=== PATIENT | female | born 1955 | race Caucasian/White ===

== ENCOUNTER 2018-12-30 07:27 | Day surgery (SDC) | payer OTHER ==
[~2018-12-30] VITALS: Ht 159 cm; Wt 79.2 kg
[~2018-12-30 07:27] MED LIST: AMOX1XR PO; CEPH500 PO; CLIN300 PO; CLON.1 PO; CLON.2 PO; CLON.5; CLON.5 PO; CLON1 PO; CLOT1TC TOP; CONEST.3; CONEST.625; CYCL10 PO; DICMIS50EC; DIPATR PO; FAMO40 PO; GABA300 PO; GABA400 PO; HYDACE5 PO; HYDACE5325; HYDGUAL120 PO; HYDHCL25 PO; HYDPAM25; HYDPAM50 PO; LORA2 PO; MEDICAL MARIJUANA; METH10; METH10 PO; METH40 PO; METH5 PO; METHADONE HCL PO; MOBIC; MULVITMIND PO; Mobic15 MG PO; OMEP20ER PO; OMEPRAZOLE MAGN20 MG PO; OXYACE5T PO; OXYACE7.5T PO; OXYC10TA19 PO; OXYC30 PO; Omega 3 1,0001 EACH PO; PARO25; PROACE100 PO; PROC5 PO; PROM25 PO; Percocet 5-3251 EACH PO; Prilosec Otc20 MG; Prilosec Otc20 MG PO; Pyridium200 MG PO; RANI150 PO; RXOXYACE PO; RXPROACE PO; SULTRIDS PO; VARE1 PO; VICODEN
--- NOTE | 2018-12-30 09:36 | NUR ---
Ambulatory in Day Surgery History, Chart, Medications and Allergies reviewed before start of procedure.Patient confirms NPO status and agrees with scheduled surgery. Lungs clear T/O to Auscultation. Patient States Post-Procedure ride home has been arranged.
--- NOTE | 2018-12-30 09:52 | NUR ---
12/30/18 [id number] Merle Paredes PATIENT DETERMINED TO BE ASA APPROPRIATE FOR PROPOFOL SEDATION PRIOR TO START OF PROCEDURE BY DR. CAMARGO. 3-LEAD EKG REVIEWED WITH PHYSICIAN PRIOR TO START OF PROCEDURE. PATIENT CONFIRMS NPO STATUS AND AGREES WITH SCHEDULED PROCEDURE. History, Chart, Medications and Allergies reviewed before start of procedure. MONITOR INTACT WITH CONTINUOUS PULSE OXIMETRY AND INTERMITTENT BP. O2 VIA N/C INTACT THROUGHOUT SEDATION/PROCEDURE AND POM MASK AT 10 L. Bite Block Placed AFTER HURRICAINE SPRAY TO OROPHARYX, IMMEDIATELY PRESEDATION.
--- NOTE | 2018-12-30 10:26 | NUR ---
Patient up to Ambulate independently. Gait steady. Discharge instructions reviewed with patient. Patient verbalizes understanding. Copy given to patient to take home. Patient States Post-Procedure ride home has been arranged with brother or friend. Discharged via wheelchair to private car for ride home.
== END 2018-12-30 10:28 | disposition home or self-care (01) ==
LOC: ORSCMMR 07:27 → ORD 09:30 → ORSCMMR 09:30
PROVIDERS: Internal Medicine Gastroenterology
PROC: 0DB68ZX Excision of Stomach, Via Natural or Artificial Opening Endoscopic, Diagnostic (ICD-10-PCS; principal; 2018-12-30 09:30)
DX: R10.13 Epigastric pain (principal); B19.20 Unspecified viral hepatitis C without hepatic coma; F17.210 Nicotine dependence, cigarettes, uncomplicated; Z79.899 Other long term (current) drug therapy
CPT/HCPCS: 88305; 88342; J2704; J7120

== ENCOUNTER 2019-03-21 16:55 | Emergency (ER) | payer OTHER ==
[~2019-03-21] VITALS: Ht 157.5 cm; Wt 77.1 kg
[2019-03-21 17:52] LABS: Alanine Aminotransfer (ALT/SGP 30 U/L (12-78); Albumin, Blood 3.6 g/dL (3.4-5.0); Alk Phos 100 U/L (50-136); Anion Gap 5 mmol/L (6-16); Aspartate Aminotrans (AST/SGOT 23 U/L (12-37); Bilirubin, Total 0.3 mg/dL (0.1-1.0); Blood Urea Nitrogen 16 mg/dL (8-24); Bun/Creatinine Ratio 28.1 (12.0-20.0); CO2, Blood 29 mmol/L (21-32); Calcium, Blood 8.8 mg/dL (8.5-10.1); Chloride, Blood 106 mmol/L (98-108); Creatinine, Blood 0.57 mg/dL (0.40-1.00); Globulin, Blood 3.7 g/dL (2.2-4.0); Glomerular Filtration Rate >60 (60-); Glucose, Blood 86 mg/dL (70-99); Potassium, Blood 4.2 mmol/L (3.5-5.5); Sodium, Blood 140 mmol/L (136-145); Total Protein, Blood 7.3 g/dL (6.4-8.2); Troponin I <0.015 ng/mL (0.000-0.040)
[2019-03-21 17:58] LABS: BASOPHILS ABSOLUTE AUTO 0.01 K/mm3 (0.00-0.23); BASOPHILS PERCENT AUTO 0 % (0-2); EOSINOPHILS ABSOLUTE AUTO 0.14 K/mm3 (0.00-0.68); EOSINOPHILS PERCENT AUTO 2 % (0-6); Hematocrit 37.6 % (33.0-51.0); Hemoglobin 11.9 g/dL (11.5-16.0); IMMATURE GRAN ABSOLUTE AUTO 0.01 K/mm3 (0.00-0.10); IMMATURE GRAN PERCENT AUTO 0 % (0-1); LYMPHOCYTES ABSOLUTE AUTO 1.18 K/mm3 (0.84-5.20); LYMPHOCYTES PERCENT AUTO 19 % (21-46); MONOCYTES ABSOLUTE AUTO 0.76 K/mm3 (0.16-1.47); MONOCYTES PERCENT AUTO 13 % (4-13); Mean Corpuscular HGB 29.2 pg (26.0-34.0); Mean Corpuscular HGB Conc 31.6 g/dL (31.5-36.5); Mean Corpuscular Volume 92 fL (80-100); NEUTROPHILS PERCENT AUTO 66 % (41-73); Platelet Count 216 K/mm3 (150-400); RDW Coefficient Variation 12.7 % (11.7-14.2); RDW Standard Deviation 42.5 fL (35.1-46.3); Red Blood Cell Count 4.08 M/mm3 (3.80-5.20)
[2019-03-21] MEDS ORDERED: NAPR550 PO (19:34)
== END 2019-03-21 19:48 | disposition home or self-care (01) ==
LOC: ER 16:55
PROVIDERS: Physician Assistant
DX: R07.89 Other chest pain (principal); F17.210 Nicotine dependence, cigarettes, uncomplicated; Z86.19 Personal history of other infectious and parasitic diseases
CPT/HCPCS: 36415; 71046; 80053; 84484; 85025; 93005; 93010; 99284-25

== ENCOUNTER 2020-02-06 12:01 | Day surgery (SDC) | payer OTHER ==
[~2020-02-06] VITALS: Ht 157.5 cm; Wt 78.4 kg
[~2020-02-06 12:01] MED LIST changes: +BUPROPION XL150 M1 PO; +COMPAZINE10 MG PO; +DOXEPIN HCL45 GM; +IBUP800; +IBUP800 PO; +NAPR550 PO; +PREMARIN CREAM VAG; +TRIA15CR3; +Voltaren100 GM
--- NOTE | 2020-02-06 12:44 | NUR ---
02/06/20 [id number] Jenae Christianson 1 try right hand didnt advance 2 try above firdt miss no flash cml
== END 2020-02-06 14:20 | disposition home or self-care (01) ==
LOC: ORSCSDS 12:01
PROVIDERS: Internal Medicine Gastroenterology
PROC: 0DJD8ZZ Inspection of Lower Intestinal Tract, Via Natural or Artificial Opening Endoscopic (ICD-10-PCS; principal; 2020-02-06 13:00)
DX: K92.1 Melena (principal); K57.30 Diverticulosis of large intestine without perforation or abscess without bleeding; K64.8 Other hemorrhoids; F17.210 Nicotine dependence, cigarettes, uncomplicated; B19.20 Unspecified viral hepatitis C without hepatic coma; F31.9 Bipolar disorder, unspecified; E78.5 Hyperlipidemia, unspecified; Z79.899 Other long term (current) drug therapy
CPT/HCPCS: J2250; J2704; J7120

== ENCOUNTER 2022-07-28 20:41 | Emergency (ER) | payer OTHER ==
[~2022-07-28] VITALS: Ht 157.5 cm; Wt 59.9 kg
[2022-07-28 20:44] VITALS: BP 154/111
== END 2022-07-29 00:20 | disposition left against medical advice (07) ==
LOC: ER 20:41
DX: S80.02XA Contusion of left knee, initial encounter (principal); S80.812A Abrasion, left lower leg, initial encounter; V47.5XXA Car driver injured in collision with fixed or stationary object in traffic accident, initial encounter; Z88.8 Allergy status to other drugs, medicaments and biological substances; Z88.6 Allergy status to analgesic agent; Z79.899 Other long term (current) drug therapy; F17.210 Nicotine dependence, cigarettes, uncomplicated
CPT/HCPCS: 73562-LT; 73590; 73700; 96372; 99284-25; J1885

== ENCOUNTER 2023-06-14 09:56 | Emergency (ER) | payer MEDICARE, OTHER ==
[~2023-06-14] VITALS: Ht 157.5 cm; Wt 54.4 kg
[2023-06-14 10:58] LABS: Source, Urine Clean Catch
[2023-06-14 11:02] LABS: Appearance, Urine Clear (Clear); Bilirubin, Urine Neg (Neg); Blood, Urine 2+ (Neg); Color, Urine Yellow (P-Yellow); Glucose Qualitative, Urine Neg (Neg); Ketones, Urine Neg (Neg); Leukocyte Esterase, Urine 1+ (Neg); Nitrite, Urine Neg (Neg); Protein, Urine Neg (Neg); Urobilinogen, Urine NORM (Normal); pH, Urine 6.5 (5.0-8.0)
[2023-06-14 11:08] LABS: Squamous Epithelial Cells Few /hpf (Few)
[2023-06-14 11:09] LABS: Bacteria Few /hpf
[2023-06-14] MEDS ORDERED: Cyclobenzaprine5 MG PO (12:01)
[2023-06-14] MEDS ORDERED: FentaNYL Citrate 50 MCG/ML 2 ML Injection IV ONE (12:05)
[2023-06-14] MEDS ORDERED: Acetaminophen 500 MG Tab PO ONE (12:20)
[2023-06-14 12:24] LABS: BASOPHILS ABSOLUTE AUTO 0.03 K/mm3 (0.00-0.23); BASOPHILS PERCENT AUTO 1 % (0-2); EOSINOPHILS ABSOLUTE AUTO 0.19 K/mm3 (0.00-0.68); EOSINOPHILS PERCENT AUTO 4 % (0-6); Hematocrit 37.2 % (33.0-51.0); IMMATURE GRAN ABSOLUTE AUTO 0.02 K/mm3 (0.00-0.10); IMMATURE GRAN PERCENT AUTO 1 % (0-1); LYMPHOCYTES ABSOLUTE AUTO 1.18 K/mm3 (0.84-5.20); LYMPHOCYTES PERCENT AUTO 27 % (21-46); MONOCYTES ABSOLUTE AUTO 0.56 K/mm3 (0.16-1.47); MONOCYTES PERCENT AUTO 13 % (4-13); Mean Corpuscular HGB 29.5 pg (26.0-34.0); Mean Corpuscular HGB Conc 32.3 g/dL (31.5-36.5); Mean Corpuscular Volume 91 fL (80-100); Mean Platelet Volume 9.3 fL (9.1-12.4); NEUTROPHILS ABSOLUTE AUTO 2.43 K/mm3 (1.96-9.15); NEUTROPHILS PERCENT AUTO 55 % (41-73); Platelet Count 213 K/mm3 (150-400); RDW Coefficient Variation 13.2 % (11.7-14.2); RDW Standard Deviation 44.2 fL (35.1-46.3); Red Blood Cell Count 4.07 M/mm3 (3.80-5.20); White Blood Cell Count 4.41 K/mm3 (4.00-11.30)
[2023-06-14] MEDS ORDERED: NS 1,000 ML IV SCH (12:25)
[2023-06-14 12:36] LABS: Albumin, Blood 3.7 g/dL (3.4-5.0); Albumin/Globulin Ratio 1.2 (0.8-1.8); Bilirubin, Total 0.3 mg/dL (0.1-1.0); Bun/Creatinine Ratio 21.2 (12.0-20.0); Calcium, Blood 8.9 mg/dL (8.5-10.1); Creatinine, Blood 0.52 mg/dL (0.40-1.00); Total Protein, Blood 6.7 g/dL (6.4-8.2)
[2023-06-14 13:43] VITALS: BP 139/54
[2023-06-14] MEDS ORDERED: NITR100CA PO (14:13)
== END 2023-06-14 14:25 | disposition home or self-care (01) ==
LOC: ER 09:56
PROVIDERS: Family Medicine Adult Medicine; Physician Assistant
DX: N39.0 Urinary tract infection, site not specified (principal); F17.210 Nicotine dependence, cigarettes, uncomplicated
CPT/HCPCS: 74177; 76857; 80053; 81001; 85025; 87086; 96375-59; 99284-25; A9270; J3010; Q9967